=== PATIENT | male | born 1935 | race Two or more races ===

== ENCOUNTER 2020-11-16 01:06 | Inpatient (IN) | payer OTHER ==
[2020-11-16] VITALS (7 sets, daily range): BP systolic 102–137; BP diastolic 52–81
[~2020-11-16] VITALS: Ht 180.3 cm; Wt 65.0 kg
[2020-11-16] MEDS ORDERED: MORPHINE SULF INJ 2 MG/ML SYRINGE 1ML IV PRN (01:30)
[2020-11-16] MEDS ORDERED: NITROGLYCERIN 0.4 MG SL TAB SL PRN (01:30)
[2020-11-16] MEDS ORDERED: HEPARIN DRIP/D5W 100UNITS/ML 250 ML IV SCH ×2 (01:30→14:00)
[2020-11-16 02:45] LABS: Basophils # (auto) 0.1 10 ^3/uL (0-0.2); Eosinophils # (auto) 0.1 10 ^3/uL (0-0.8); Eosinophils % (auto) 1.5 % (0.0-7.0); Hemoglobin 10.3 g/dL (13.5-17.5); Lymphocytes # (auto) 0.7 10 ^3/uL (0.4-5.4); Monocytes # (auto) 0.6 10 ^3/uL (0-1.3); Nucleated Red Blood Cells % 0.1 %; White Blood Cell 4.9 10^3/uL (4.4-10.8)
[2020-11-16 02:47] LABS: Hematocrit 32.3 % (41.0-53.0); Lymphocytes % (auto) 14.5 % (10.0-50.0); Mean Corpuscular Hemoglobin 35.6 pg (28.0-32.0); Mean Corpuscular Hgb Conc. 31.7 g/dL (32.0-36.0); Mean Corpuscular Volume 112.1 fL (80.0-100.0); Monocytes % (auto) 11.6 % (0.0-12.0); Neutrophils # (auto) 3.5 10 ^3/uL (1.6-8.6); Neutrophils % (auto) 71.4 % (37.0-80.0); Platelet Count (auto) 94 10^3/uL (140-450); Red Blood Cells 2.88 10^6/uL (4.5-5.90); Red Cell Distribution Width 16.4 % (11.8-14.3)
[2020-11-16] MEDS ORDERED: SEVE800T PO (03:09)
[2020-11-16] MEDS ORDERED: ATEN50TA PO (03:09)
[2020-11-16] MEDS ORDERED: SIMV-8 PO (03:09)
[2020-11-16] MEDS ORDERED: LOSA25TA38 PO (03:09)
[2020-11-16] MEDS ORDERED: ASPI-543 PO (03:09)
[2020-11-16] MEDS ORDERED: ALLO100T PO (03:09)
[2020-11-16] MEDS ORDERED: FERR-20 PO (03:09)
[2020-11-16] MEDS ORDERED: FOLI1TAB6 PO (03:09)
[2020-11-16 03:11] LABS: INR 1.09 (0.9-1.15); Partial Thromboplastin Time 38.5 sec (23.0-31.2)
[2020-11-16] MEDS: ASPirin-EC 81 mg tab PO SCH ×2 (10:00→14:50)
[2020-11-16] MEDS ORDERED: LOSARTAN POTASSIUM 25 MG TAB PO SCH (10:00)
[2020-11-16] MEDS: FOLIC ACID 1 MG TAB PO SCH (10:00)
[2020-11-16] MEDS ORDERED: ASPirin-EC 81 mg tab PO SCH (10:00)
[2020-11-16] MEDS: ALLOPURINOL 100 MG TAB PO SCH ×2 (11:47→21:57)
[2020-11-16] MEDS: ATENOLOL 50 MG TAB PO SCH ×2 (11:59→21:57)
[2020-11-16] MEDS: FERROUS SULFATE 325mg EC TAB PO SCH ×2 (12:00→18:41)
[2020-11-16] MEDS ORDERED: SODIUM ZIRCONIUM CYCL 10 GM PAK PO ONE (12:30)
[2020-11-16] MEDS ORDERED: ACETAMINOPHEN 500 MG TAB PO PRN (13:00)
[2020-11-16] MEDS: SEVELAMER 800 MG TAB PO SCH ×2 (14:50→21:56)
[2020-11-16 15:35] LABS: Basophils # (auto) 0.1 10 ^3/uL (0-0.2); Eosinophils # (auto) 0.1 10 ^3/uL (0-0.8); Hemoglobin 11.1 g/dL (13.5-17.5); Lymphocytes # (auto) 0.6 10 ^3/uL (0.4-5.4); Monocytes # (auto) 0.6 10 ^3/uL (0-1.3); Neutrophils # (auto) 4.6 10 ^3/uL (1.6-8.6); Nucleated Red Blood Cells % 0.1 %
[2020-11-16 15:37] LABS: Basophils % (auto) 0.9 % (0.0-2.0); Eosinophils % (auto) 1.1 % (0.0-7.0); Hematocrit 34.4 % (41.0-53.0); Lymphocytes % (auto) 9.8 % (10.0-50.0); Mean Corpuscular Hemoglobin 35.8 pg (28.0-32.0); Mean Corpuscular Hgb Conc. 32.2 g/dL (32.0-36.0); Mean Corpuscular Volume 111.2 fL (80.0-100.0); Monocytes % (auto) 10.4 % (0.0-12.0); Neutrophils % (auto) 77.8 % (37.0-80.0); Platelet Count (auto) 110 10^3/uL (140-450); Red Cell Distribution Width 16.6 % (11.8-14.3)
[2020-11-16 15:52] LABS: Cholesterol 107 mg/dL (< 200)
[2020-11-16 15:54] LABS: Albumin 3.6 g/dL (3.4-5.0); Calcium 8.6 mg/dL (8.5-10.1); HDL Cholesterol 62 mg/dL (40-59); LDL Cholesterol 39 mg/dL (< 100); Triglycerides 108 mg/dL (< 150)
[2020-11-16 15:56] LABS: BUN/Creatinine Ratio 7.7
[2020-11-16 16:02] LABS: Bilirubin, Total 0.5 mg/dL (0.2-1.0); Total Protein 6.7 g/dL (6.4-8.2)
[2020-11-16] MEDS ORDERED: IOHEXOL 350 MG/ML 100ML IJ ONE (16:08)
[2020-11-16] MEDS: ATORVASTATIN 20 MG TAB PO SCH (21:56)
[2020-11-16] MEDS ORDERED: ATORVASTATIN 20 MG TAB PO SCH ×2 (22:00)
[2020-11-17 00:58] LABS: Basophils # (auto) 0.1 10 ^3/uL (0-0.2); Eosinophils # (auto) 0.1 10 ^3/uL (0-0.8); Hemoglobin 9.9 g/dL (13.5-17.5); Monocytes # (auto) 0.6 10 ^3/uL (0-1.3); Neutrophils # (auto) 4.1 10 ^3/uL (1.6-8.6)
[2020-11-17 01:00] LABS: Basophils % (auto) 1.3 % (0.0-2.0); Eosinophils % (auto) 1.1 % (0.0-7.0); Hematocrit 30.6 % (41.0-53.0); Lymphocytes # (auto) 0.6 10 ^3/uL (0.4-5.4); Lymphocytes % (auto) 11.4 % (10.0-50.0); Mean Corpuscular Hemoglobin 35.8 pg (28.0-32.0); Mean Corpuscular Hgb Conc. 32.2 g/dL (32.0-36.0); Mean Corpuscular Volume 111.3 fL (80.0-100.0); Monocytes % (auto) 10.1 % (0.0-12.0); Neutrophils % (auto) 76.1 % (37.0-80.0); Platelet Count (auto) 92 10^3/uL (140-450); Red Blood Cells 2.75 10^6/uL (4.5-5.90); Red Cell Distribution Width 16.2 % (11.8-14.3); White Blood Cell 5.4 10^3/uL (4.4-10.8)
[2020-11-17] MEDS: HEPARIN DRIP/D5W 100UNITS/ML 250 ML IV SCH ×2 (01:45→22:57)
[2020-11-17 05:00] VITALS: BP 111/55
[2020-11-17] MEDS: SEVELAMER 800 MG TAB PO SCH ×3 (06:08→23:59)
[2020-11-17] MEDS ORDERED: SODIUM CHL 0.9% 1000 ML BAG XX ONE (07:00)
[2020-11-17 08:00] VITALS: BP 122/51
[2020-11-17] MEDS: FERROUS SULFATE 325mg EC TAB PO SCH ×3 (08:46→17:52)
[2020-11-17] MEDS: FOLIC ACID 1 MG TAB PO SCH (09:50)
[2020-11-17] MEDS: ATENOLOL 50 MG TAB PO SCH (09:51)
[2020-11-17] MEDS: SODIUM ZIRCONIUM CYCL 10 GM PAK PO SCH (09:51)
[2020-11-17] MEDS: ALLOPURINOL 100 MG TAB PO SCH (09:51)
[2020-11-17 11:26] LABS: INR 1.06 (0.9-1.15)
[2020-11-17 11:32] LABS: Partial Thromboplastin Time 83.5 sec (23.0-31.2)
[2020-11-17 12:00] VITALS: BP 141/61
[2020-11-17 14:57] LABS: Basophils # (auto) 0.1 10 ^3/uL (0-0.2); Eosinophils # (auto) 0.1 10 ^3/uL (0-0.8); Lymphocytes # (auto) 0.6 10 ^3/uL (0.4-5.4)
[2020-11-17 14:59] LABS: Basophils % (auto) 1.3 % (0.0-2.0); Eosinophils % (auto) 1.3 % (0.0-7.0); Hematocrit 30.9 % (41.0-53.0); Hemoglobin 10.1 g/dL (13.5-17.5); Mean Corpuscular Hemoglobin 35.9 pg (28.0-32.0); Mean Corpuscular Hgb Conc. 32.6 g/dL (32.0-36.0); Mean Corpuscular Volume 110.3 fL (80.0-100.0); Monocytes # (auto) 0.6 10 ^3/uL (0-1.3); Monocytes % (auto) 12.2 % (0.0-12.0); Neutrophils # (auto) 3.8 10 ^3/uL (1.6-8.6); Neutrophils % (auto) 73.2 % (37.0-80.0); Nucleated Red Blood Cells % 0.1 %; Platelet Count (auto) 106 10^3/uL (140-450); Red Blood Cells 2.81 10^6/uL (4.5-5.90); Red Cell Distribution Width 16.3 % (11.8-14.3); White Blood Cell 5.2 10^3/uL (4.4-10.8)
[2020-11-17 15:14] LABS: INR 1.05 (0.9-1.15); Partial Thromboplastin Time 37.8 sec (23.0-31.2)
[2020-11-17 16:00] VITALS: BP 132/57
[2020-11-17 19:30] LABS: Urine Bacteria FEW /hpf (None Seen); Urine Blood Negative /uL (Negative); Urine Specific Gravity 1.017 (1.001-1.035); Urine WBC 7 /hpf (0 - 3)
[2020-11-17] MEDS ORDERED: EPOETIN ALFA-EPBX 10,000 UNIT/1ML VIAL SC ONE (21:00)
[2020-11-17 22:00] VITALS: BP 127/57
[2020-11-17 22:38] LABS: INR 1.04 (0.9-1.15)
[2020-11-17 22:43] LABS: Partial Thromboplastin Time 78.1 sec (23.0-31.2)
[2020-11-17] MEDS: ATORVASTATIN 20 MG TAB PO SCH (23:59)
[2020-11-18 05:00] VITALS: BP 107/52
[2020-11-18] MEDS: SEVELAMER 800 MG TAB PO SCH ×3 (05:54→23:10)
[2020-11-18 06:20] LABS: Calcium 8.3 mg/dL (8.5-10.1); Potassium 4.1 mmol/L (3.5-5.1)
[2020-11-18 06:26] LABS: INR 1.04 (0.9-1.15)
[2020-11-18 06:29] LABS: Partial Thromboplastin Time 88.6 sec (23.0-31.2)
[2020-11-18] MEDS ORDERED: LIDOCAINE 2%HCL (LOCAL ANESTH.) INJ 20ML MDV ONE (07:35)
[2020-11-18] MEDS ORDERED: IODIXANOL 320MG/ML 100ML BTL IV ONE ×2 (07:35→09:28)
[2020-11-18] MEDS: FERROUS SULFATE 325mg EC TAB PO SCH ×3 (08:00→17:19)
[2020-11-18] MEDS ORDERED: fentaNYL CITRATE 100 MCG/2 ML VL ONE (08:04)
[2020-11-18] MEDS ORDERED: ANGIOMAX 250 MG VIAL IV ONE (08:04)
[2020-11-18] MEDS ORDERED: SODIUM CHL 0.9% 50 ML ONE (08:05)
[2020-11-18] MEDS ORDERED: MIDAZOLAM HCL 1MG/1ML-2 ML VIAL ONE (08:05)
[2020-11-18] MEDS ORDERED: CLOPIDOGREL 300 MG TAB ONE (09:50)
[2020-11-18] MEDS ORDERED: ASPirin 325 MG TAB ONE (09:50)
[2020-11-18] MEDS: SODIUM ZIRCONIUM CYCL 10 GM PAK PO SCH (10:00)
[2020-11-18] MEDS: FOLIC ACID 1 MG TAB PO SCH (10:00)
[2020-11-18] MEDS: ALLOPURINOL 100 MG TAB PO SCH (10:00)
[2020-11-18] MEDS: ATENOLOL 50 MG TAB PO SCH ×3 (10:00→23:11)
[2020-11-18] MEDS: ASPirin-EC 81 mg tab PO SCH (10:00)
[2020-11-18] MEDS ORDERED: FAMOTIDINE (10MG/ML) 2ML VL IV ONE (10:17)
[2020-11-18] MEDS ORDERED: hydrALAZINE HCL 20 MG/ML VL ONE (10:32)
[2020-11-18] MEDS ORDERED: fentaNYL CITRATE 100 MCG/2 ML VL IV ONE (11:30)
[2020-11-18] MEDS ORDERED: ACETAMINOPHEN/CODEINE#3 (300/30mg) TAB PO PRN (11:30)
[2020-11-18 12:00] VITALS: BP 130/65
[2020-11-18 16:00] VITALS: BP_SYST 131; BP_SYST 148; BP_DIAS 54; BP_DIAS 70
[2020-11-18] MEDS: ONDANSETRON HCL 4 MG/2 ML VIAL IV PRN (18:35)
[2020-11-18 20:00] VITALS: BP 112/56
[2020-11-18 22:00] VITALS: BP 143/93
[2020-11-18] MEDS: ATORVASTATIN 20 MG TAB PO SCH (23:11)
[2020-11-19 05:23] LABS: Basophils # (auto) 0.2 10 ^3/uL (0-0.2); Basophils % (auto) 2.8 % (0.0-2.0); Eosinophils # (auto) 0.1 10 ^3/uL (0-0.8); Eosinophils % (auto) 2.1 % (0.0-7.0); Hematocrit 33.5 % (41.0-53.0); Hemoglobin 10.5 g/dL (13.5-17.5); Lymphocytes # (auto) 0.4 10 ^3/uL (0.4-5.4); Lymphocytes % (auto) 7.5 % (10.0-50.0); Mean Corpuscular Hemoglobin 35.2 pg (28.0-32.0); Mean Corpuscular Hgb Conc. 31.4 g/dL (32.0-36.0); Mean Corpuscular Volume 111.9 fL (80.0-100.0); Monocytes # (auto) 0.9 10 ^3/uL (0-1.3); Monocytes % (auto) 14.9 % (0.0-12.0); Neutrophils # (auto) 4.2 10 ^3/uL (1.6-8.6); Neutrophils % (auto) 72.7 % (37.0-80.0); Nucleated Red Blood Cells % 0.1 %; Platelet Count (auto) 104 10^3/uL (140-450); Red Blood Cells 2.99 10^6/uL (4.5-5.90); Red Cell Distribution Width 16.4 % (11.8-14.3); White Blood Cell 5.8 10^3/uL (4.4-10.8)
[2020-11-19 05:27] VITALS: BP 130/73
[2020-11-19 05:52] LABS: BUN/Creatinine Ratio 7.5; Calcium 7.9 mg/dL (8.5-10.1)
[2020-11-19] MEDS ORDERED: SODIUM CHL 0.9% 1000 ML BAG XX ONE (07:00)
[2020-11-19 08:00] VITALS: BP 114/53
[2020-11-19] MEDS: FERROUS SULFATE 325mg EC TAB PO SCH ×3 (08:17→17:36)
[2020-11-19] MEDS ORDERED: ASPI-543 PO (11:43)
[2020-11-19] MEDS ORDERED: SIMV-8 PO (11:43)
[2020-11-19] MEDS ORDERED: CLOP75TA70 PO (11:43)
[2020-11-19] MEDS: CLOPIDOGREL BISULFATE 75 MG TAB PO SCH (11:53)
[2020-11-19] MEDS: FOLIC ACID 1 MG TAB PO SCH (11:53)
[2020-11-19] MEDS: ALLOPURINOL 100 MG TAB PO SCH (11:53)
[2020-11-19] MEDS: ASPirin-EC 81 mg tab PO SCH (11:53)
[2020-11-19] MEDS: ATENOLOL 50 MG TAB PO SCH ×3 (11:54→23:31)
[2020-11-19 12:00] VITALS: BP 96/57
[2020-11-19] MEDS: SEVELAMER 800 MG TAB PO SCH ×3 (14:28→23:41)
[2020-11-19 16:00] VITALS: BP 114/58
[2020-11-19 22:00] VITALS: BP 137/61
[2020-11-19] MEDS: ATORVASTATIN 20 MG TAB PO SCH (23:29)
[2020-11-20 05:00] VITALS: BP 98/46
[2020-11-20] MEDS: SEVELAMER 800 MG TAB PO SCH ×2 (05:29→15:33)
[2020-11-20] MEDS: FERROUS SULFATE 325mg EC TAB PO SCH ×3 (08:42→17:52)
[2020-11-20 09:00] VITALS: BP 110/52
[2020-11-20] MEDS: ASPirin-EC 81 mg tab PO SCH (09:59)
[2020-11-20] MEDS: ALLOPURINOL 100 MG TAB PO SCH (10:00)
[2020-11-20] MEDS: ATENOLOL 50 MG TAB PO SCH (10:00)
[2020-11-20] MEDS: FOLIC ACID 1 MG TAB PO SCH ×2 (10:00→10:01)
[2020-11-20] MEDS: CLOPIDOGREL BISULFATE 75 MG TAB PO SCH (10:01)
[2020-11-20] MEDS: ONDANSETRON HCL 4 MG/2 ML VIAL IV PRN (11:27)
[2020-11-20] MEDS: SODIUM ZIRCONIUM CYCL 10 GM PAK PO SCH (11:46)
[2020-11-20 12:35] VITALS: BP 158/69
[2020-11-20 14:11] LABS: BUN/Creatinine Ratio 6.6; Calcium 8.8 mg/dL (8.5-10.1)
[2020-11-20 16:42] VITALS: BP 106/56
[2020-11-20 17:00] VITALS: BP 106/56
== END 2020-11-20 18:56 | disposition home or self-care (01) | DRG 250 ==
LOC: TELE-WESTW 01:06
PROVIDERS: ADMIT Hospitalist; ATTEND Hospitalist
PROC: 5A1D70Z Performance of Urinary Filtration, Intermittent, Less than 6 Hours Per Day (ICD-10-PCS; 2020-11-17)
PROC: 0W9B3ZX Drainage of Left Pleural Cavity, Percutaneous Approach, Diagnostic (ICD-10-PCS; principal; 2020-11-18)
PROC: 02703ZZ Dilation of Coronary Artery, One Artery, Percutaneous Approach (ICD-10-PCS; 2020-11-18)
PROC: B211YZZ Fluoroscopy of Multiple Coronary Arteries using Other Contrast (ICD-10-PCS; 2020-11-18)
PROC: 4A023N7 Measurement of Cardiac Sampling and Pressure, Left Heart, Percutaneous Approach (ICD-10-PCS; 2020-11-18)
PROC: B215YZZ Fluoroscopy of Left Heart using Other Contrast (ICD-10-PCS; 2020-11-18)
PROC: 4B02XSZ Measurement of Cardiac Pacemaker, External Approach (ICD-10-PCS; 2020-11-18)
PROC: B41 Imaging, Lower Arteries, Fluoroscopy (ICD-10-PCS; 2020-11-18)
PROC: 5A1D70Z Performance of Urinary Filtration, Intermittent, Less than 6 Hours Per Day (ICD-10-PCS; 2020-11-19)
DX: I21.4 Non-ST elevation (NSTEMI) myocardial infarction (principal); N18.6 End stage renal disease; I13.2 Hypertensive heart and chronic kidney disease with heart failure and with stage 5 chronic kidney disease, or end stage renal disease; R64 Cachexia; J90 Pleural effusion, not elsewhere classified; I31.3 Pericardial effusion (noninflammatory); J98.11 Atelectasis; D63.1 Anemia in chronic kidney disease; I50.9 Heart failure, unspecified; I25.10 Atherosclerotic heart disease of native coronary artery without angina pectoris; R07.89 Other chest pain; I48.0 Paroxysmal atrial fibrillation; E87.5 Hyperkalemia; E78.5 Hyperlipidemia, unspecified; I71.2 Thoracic aortic aneurysm, without rupture; Z20.822 Contact with and (suspected) exposure to COVID-19; I73.9 Peripheral vascular disease, unspecified; J43.9 Emphysema, unspecified; N62 Hypertrophy of breast; Z79.02 Long term (current) use of antithrombotics/antiplatelets; Z82.49 Family history of ischemic heart disease and other diseases of the circulatory system; Z83.3 Family history of diabetes mellitus; Z86.711 Personal history of pulmonary embolism; Z87.891 Personal history of nicotine dependence; Z90.49 Acquired absence of other specified parts of digestive tract; Z95.0 Presence of cardiac pacemaker; Z99.2 Dependence on renal dialysis; Z99.81 Dependence on supplemental oxygen; I07.1 Rheumatic tricuspid insufficiency; W18.39XA Other fall on same level, initial encounter; Y93.89 Activity, other specified; Y92.89 Other specified places as the place of occurrence of the external cause; Y99.8 Other external cause status; Z68.20 Body mass index [BMI] 20.0-20.9, adult
CPT/HCPCS: 36415; 71045; 71275; 73700; 80048; 80053; 80061; 81001; 83036; 83880; 83986; 84484; 85025; 85610; 85730; 87081; 87086; 87205; 89051; 90935; 93306; 99152; 99153; C1725; C1874; C1887; G0378; J1642; J2250; J2405; J3490; Q9967